=== PATIENT | female | born 1965 | race African-American/Black ===

== ENCOUNTER 2018-10-03 14:16 | Emergency (ER) | payer OTHER ==
[~2018-10-03] VITALS: Ht 172.7 cm; Wt 135.2 kg
[~2018-10-03 14:16] MED LIST: AMITRIPTYLINE H25 M2 PO; AMITRIPTYLINE H25 M3 PO; AMLODIPINE BESY10 MG PO; B-12250 MCG PO; CALCIUM OYSTER500 MG PO; DOXEPIN 25 MG C25 M1 PO; GABAPENTIN100 MG PO; HYDROCHLOROTHIA25 M1 PO; LISINOPRIL10 MG PO; LISINOPRIL40 MG PO; MULTIVITAMINS PO; OXYCODONE HCL15 MG PO; PHENYTEK300 MG PO; RESTORIL30 MG PO; TEGRETOL XR100 MG; TEGRETOL100 MG/5 M PO; VITAMIN D-32000 UNIT PO; ZESTRIL40 MG PO
[2018-10-03] MEDS ORDERED: TRAMADOL 50 MG50 MG PO (14:44)
[2018-10-03 15:21] LABS: ABSOLUTE NEUTROPHILS 6.1 thou/uL (1.4-8.2); BASOPHILS 1.1 % (0.0-2.0); EOSINOPHILS 1.7 % (0.0-3.0); HEMATOCRIT 37.2 % (37.0-47.0); HEMOGLOBIN 12.5 gm/dL (12.0-15.0); LYMPHOCYTES 26.7 % (24.0-44.0); MCH 28.1 pg (26.0-34.0); MCHC 33.5 g/dL (28.0-37.0); MCV 83.8 fL (80.0-100.0); MONOCYTES 7.5 % (1.0-8.0); PLATELET COUNT 381 thou/uL (150-400); RBC 4.44 mil/uL (4.20-5.00); RDW 15.1 % (10.5-14.5); WBC 9.7 thou/uL (4.0-11.0)
[2018-10-03 15:30] LABS: ANION GAP 10 mmol/L (7-16); BUN 23 mg/dL (7-18); CALCIUM 9.8 mg/dL (8.5-10.1); CHLORIDE 97 mmol/L (98-107); CO2 28 mmol/L (21-32); CREATININE 1.1 mg/dL (0.6-1.0); GLUCOSE 99 mg/dL (74-106); POTASSIUM 3.1 mmol/L (3.5-5.1); SODIUM 135 mmol/L (136-145)
[2018-10-03 15:33] LABS: TROPONIN-I <0.06 ng/mL (<0.06)
[2018-10-03] MEDS ORDERED: KLOR-CON 1010 MEQ PO (17:49)
[2018-10-03 17:53] VITALS: BP 148/78
--- NOTE | 2018-10-05 21:48 | EKG ---
[address] [address] ELECTROCARDIOGRAM REPORT Name: VJNANCY DUKE 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: JLАЛЕКСАНДР : 1965 Requested By: Jacques Kidd Order Number: [id number] MD: Helder Luna Measurements Intervals [place] Rate: 109 P: 45 WA: 166 QRS: -1 QRSD: 102 T: -1 QT: 345 QTc: 465 Interpretive Statements Sinus tachycardia Probable left ventricular hypertrophy Compared to ECG 09/19/2018 18:40:04 Sinus rhythm no longer present T-wave abnormality no longer present Electronically Signed On 10-05-2018 21:47:53 ETHANOL QUALITY LEADER by Helder Luna [email or web address] <ELECTRONICALLY SIGNED> By: Helder Luna MD 10/05/18 2147 1441 144 Helder Luna MD /LAURO
== END 2018-10-03 18:03 | disposition home or self-care (01) ==
LOC: ER 14:16
PROVIDERS: Emergency Medicine
DX: R07.89 Other chest pain (principal); E87.6 Hypokalemia; K21.9 Gastro-esophageal reflux disease without esophagitis; I10 Essential (primary) hypertension; F41.9 Anxiety disorder, unspecified; M79.7 Fibromyalgia

== ENCOUNTER 2018-11-11 08:29 | Emergency (ER) | payer OTHER ==
[~2018-11-11] VITALS: Ht 172.7 cm; Wt 134.7 kg
[~2018-11-11 08:29] MED LIST changes: +KLOR-CON 1010 MEQ PO; +TRAMADOL 50 MG50 MG PO
[2018-11-11 08:56] LABS: ABSOLUTE NEUTROPHILS 2.5 thou/uL (1.4-8.2); BASOPHILS 0.4 % (0.0-2.0); EOSINOPHILS 2.3 % (0.0-3.0); LYMPHOCYTES 38.9 % (24.0-44.0); MCH 27.9 pg (26.0-34.0); MCHC 32.4 g/dL (28.0-37.0); MCV 86.1 fL (80.0-100.0); MONOCYTES 8.3 % (1.0-8.0); PLATELET COUNT 250 thou/uL (150-400); POLYS 50.1 % (36.0-66.0); RBC 4.29 mil/uL (4.20-5.00); RDW 16.2 % (10.5-14.5)
[2018-11-11 09:38] LABS: ANION GAP 9 mmol/L (7-16); BUN 18 mg/dL (7-18); CALCIUM 9.6 mg/dL (8.5-10.1); CHLORIDE 103 mmol/L (98-107); CO2 26 mmol/L (21-32); CREATININE 0.8 mg/dL (0.6-1.0); GLUCOSE 89 mg/dL (74-106); POTASSIUM 3.5 mmol/L (3.5-5.1); SODIUM 138 mmol/L (136-145)
[2018-11-11 09:48] LABS: ALBUMIN 3.5 g/dL (3.4-5.0); SGOT 16 U/L (15-37); SGPT 21 U/L (30-65); TOTAL BILIRUBIN 0.2 mg/dL (<0.1-1.0); TOTAL PROTEIN 8.5 g/dL (6.4-8.2); TROPONIN-I <0.06 ng/mL (<0.06)
[2018-11-11] MEDS ORDERED: ACETAMINOPHEN-1 EAC1 PO (09:56)
[2018-11-11] MEDS ORDERED: PREDNISONE 20 M20 MG PO (09:56)
[2018-11-11 10:30] VITALS: BP 138/90
--- NOTE | 2018-11-11 17:14 | EKG ---
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 CHUN : 1965 Requested By: Tony Soliz Order Number: [id number] MD: Helder Luna Measurements Intervals [place] Rate: 80 P: 33 RI: 171 QRS: -4 QRSD: 104 T: -10 QT: 390 QTc: 450 Interpretive Statements Sinus rhythm Left ventricular hypertrophy Borderline T abnormalities, inferior leads Compared to ECG 10/03/2018 14:41:02 T-wave abnormality now present Sinus tachycardia no longer present Electronically Signed On 11-11-2018 17:14:00 SHIFT PRODUCTION SUPERVISOR by Helder Luna [email or web address] <ELECTRONICALLY SIGNED> By: Helder Luna MD 11/11/18 1714 0838 Helder Luna MD /LAURO
== END 2018-11-11 10:49 | disposition home or self-care (01) ==
LOC: ER 08:29
PROVIDERS: Emergency Medicine
DX: M75.22 Bicipital tendinitis, left shoulder (principal); K21.9 Gastro-esophageal reflux disease without esophagitis; I10 Essential (primary) hypertension; F41.9 Anxiety disorder, unspecified; M79.7 Fibromyalgia; Z90.710 Acquired absence of both cervix and uterus; Z98.890 Other specified postprocedural states

== ENCOUNTER 2019-05-27 18:01 | Emergency (ER) | payer OTHER ==
[~2019-05-27] VITALS: Ht 172.7 cm; Wt 135.2 kg
[~2019-05-27 18:01] MED LIST changes: +ACETAMINOPHEN-1 EAC1 PO; +PREDNISONE 20 M20 MG PO
[2019-05-27] MEDS ORDERED: ATIVAN1 MG PO (18:22)
[2019-05-27 18:34] LABS: ABSOLUTE NEUTROPHILS 4.5 thou/uL (1.4-8.2); BASOPHILS 0.7 % (0.0-2.0); EOSINOPHILS 2.4 % (0.0-3.0); HEMATOCRIT 36.6 % (37.0-47.0); HEMOGLOBIN 12.1 gm/dL (12.0-15.0); LYMPHOCYTES 27.8 % (24.0-44.0); MCH 27.4 pg (26.0-34.0); MONOCYTES 8.7 % (1.0-8.0); PLATELET COUNT 352 thou/uL (150-400); POLYS 60.4 % (36.0-66.0); RBC 4.41 mil/uL (4.20-5.00); RDW 15.7 % (10.5-14.5); WBC 7.4 thou/uL (4.0-11.0)
[2019-05-27 18:53] LABS: APTT 27.1 Seconds (24.5-32.8); PROTIME 10.2 Seconds (9.3-11.4)
[2019-05-27 19:06] LABS: ANION GAP 13 mmol/L (7-16); BUN 16 mg/dL (7-18); CALCIUM 9.6 mg/dL (8.5-10.1); CHLORIDE 102 mmol/L (98-107); CO2 25 mmol/L (21-32); GLUCOSE 90 mg/dL (74-106); POTASSIUM 3.6 mmol/L (3.5-5.1); SODIUM 140 mmol/L (136-145)
[2019-05-27 19:16] LABS: ALBUMIN 3.5 g/dL (3.4-5.0); SGOT 18 U/L (15-37); SGPT 20 U/L (30-65); TOTAL BILIRUBIN 0.1 mg/dL (<0.1-1.0); TROPONIN-I <0.06 ng/mL (<0.06)
[2019-05-27] MEDS ORDERED: OMEPRAZOLE20 M2 PO (22:09)
[2019-05-27 22:45] VITALS: BP 150/72
--- NOTE | 2019-05-28 08:36 | EKG ---
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 : 1965 Requested By: Tony Soliz Order Number: [id number] MD: Helder Luna Measurements Intervals [place] Rate: 119 P: 40 WA: 158 QRS: 0 QRSD: 95 T: -14 QT: 324 QTc: 456 Interpretive Statements Sinus tachycardia Left ventricular hypertrophy Borderline T abnormalities, inferior leads Compared to ECG 11/11/2018 08:38:04 Sinus rhythm no longer present T-wave abnormality still present Electronically Signed On 05-28-2019 8:36:30 CDT by Helder Luna [email or web address] <ELECTRONICALLY SIGNED> By: Helder Luna MD 05/28/1936 08 08 Helder Luna MD /LAURO
== END 2019-05-27 22:45 | disposition home or self-care (01) ==
LOC: ER 18:01
PROVIDERS: Emergency Medicine
DX: R07.9 Chest pain, unspecified (principal); R10.13 Epigastric pain; I10 Essential (primary) hypertension; K21.9 Gastro-esophageal reflux disease without esophagitis; F41.9 Anxiety disorder, unspecified; M79.7 Fibromyalgia; E66.01 Morbid (severe) obesity due to excess calories; Z90.710 Acquired absence of both cervix and uterus; Z90.49 Acquired absence of other specified parts of digestive tract; Z68.42 Body mass index [BMI] 45.0-49.9, adult; Z88.6 Allergy status to analgesic agent

== ENCOUNTER 2019-10-15 11:19 | Emergency (ER) | payer OTHER ==
[~2019-10-15] VITALS: Ht 172.7 cm; Wt 89.8 kg
[~2019-10-15 11:19] MED LIST changes: +ATIVAN1 MG PO; +OMEPRAZOLE20 M2 PO
[2019-10-15 12:13] LABS: BASOPHILS 1.7 % (0.0-2.0); HEMATOCRIT 36.6 % (37.0-47.0); HEMOGLOBIN 11.7 gm/dL (12.0-15.0); LYMPHOCYTES 27.7 % (24.0-44.0); MCH 26.8 pg (26.0-34.0); MCV 83.7 fL (80.0-100.0); MONOCYTES 11.2 % (1.0-8.0); PLATELET COUNT 376 thou/uL (150-400); POLYS 56.4 % (36.0-66.0); RBC 4.37 mil/uL (4.20-5.00); RDW 15.6 % (10.5-14.5); WBC 5.3 thou/uL (4.0-11.0)
[2019-10-15 12:24] LABS: ANION GAP 9 mmol/L (7-16); BUN 18 mg/dL (7-18); CALCIUM 9.9 mg/dL (8.5-10.1); CHLORIDE 101 mmol/L (98-107); CO2 28 mmol/L (21-32); GLUCOSE 118 mg/dL (74-106); POTASSIUM 3.6 mmol/L (3.5-5.1); SODIUM 138 mmol/L (136-145)
[2019-10-15 12:32] LABS: TROPONIN-I <0.06 ng/mL (<0.06)
[2019-10-15 14:16] VITALS: BP 176/98
--- NOTE | 2019-10-15 17:27 | EKG ---
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: [facility] : 1965 Requested By: Allen Ventura Order Number: [id number] MD: Helder Luna Measurements Intervals [place] Rate: 100 P: 41 [place]: 156 QRS: -9 QRSD: 100 T: 4 QT: 368 QTc: 475 Interpretive Statements Sinus tachycardia Left ventricular hypertrophy Compared to ECG 05/27/2019 18:09:38 T-wave abnormality no longer present Electronically Signed On 10-15-2019 17:27:08 NIGHT CLUB MANAGER by Helder Luna [email or web address] <ELECTRONICALLY SIGNED> By: Helder Luna MD 10/15/19 1727 D: [id number] Helder Luna MD /LAURO
== END 2019-10-15 14:17 | disposition home or self-care (01) ==
LOC: ER 11:19
PROVIDERS: Emergency Medicine
DX: R06.02 Shortness of breath (principal); K21.9 Gastro-esophageal reflux disease without esophagitis; I10 Essential (primary) hypertension; F41.9 Anxiety disorder, unspecified; M79.7 Fibromyalgia; Z90.710 Acquired absence of both cervix and uterus; Z98.84 Bariatric surgery status; Z90.89 Acquired absence of other organs; Z98.890 Other specified postprocedural states; Z88.5 Allergy status to narcotic agent

== ENCOUNTER → 2021-03-01 | Outpatient (CLI) | payer OTHER ==
[~2021-03-01] VITALS: Ht 172.7 cm; Wt 121.1 kg
[~2021-03-01] MED LIST changes: +ALPRAZOLAM ER1 MG PO; +DOXYCYCLINE HYC20 MG PO; +NEURONTIN100 MG PO; +SLEEP AID50 MG PO; +VITAMIN D325 MC5 PO
--- NOTE | 2021-03-03 18:06 | PATH ---
[facility] [place] [address] PATHOLOGY RPT PROCEDURE Name: KAREN VALLADARES Room #: REG [facility] MDami.#: [id number] Admission: 03/01/21 Date of : 65 Discharge: Report #: [id number] Path Case #: [id number] [facility] Accession Number: [id number] . 01 Material submitted: . PART A: duodenum - DUODENAL BIOPSY PART B: gastrointestinal site - GASTRIC BIOPSY . 01 Clinical history: . DTS/EGD/GERD DIARRHEA,BLOATING ULCER AT SURGICAL ANASTOMOSIS FOR A- R/O SPRUE . 02 Diagnosis: A. Small bowel mucosa, duodenum, endoscopic biopsy: - No significant abnormalities present. - Negative for villous blunting or increase in intraepithelial lymphocytes. . B. Gastric mucosa, gastric to rule out H. pylori, endoscopic biopsy: - Mild chronic gastritis. - Negative for intestinal metaplasia or atrophy. - Negative for Helicobacter pylori (properly controlled immunohistochemical stain performed). . 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 02 Electronically signed: . Eloisa Corona MD, Pathologist NPI- [id number] . 01 Gross description: . A. The specimen is received in formalin, labeled "Karen Valladares, duodenal biopsy rule out sprue" received as multiple fragments of soft villalpando tissue measuring up to 0.6 cm. Entirely submitted in A1. . B. The specimen is received in formalin, labeled "Karen Valladares, gastric biopsy rule out H. pylori" received as multiple fragments of soft villalpando tissue measuring up to 0.6 cm. Entirely submitted in B1. ([facility]; 03/02/2021) LORNA/LORNA 03/03/2021 1322 Local . 02 Pathologist provided ICD-10: K29.50, R19.7, R14.0 . 02 [place] [address] PATHOLOGY RPT PROCEDURE Name: KAREN VALLADARES Room #: REG [facility]#: [id number] Admission: 03/01/21 Date of : 65 Discharge: Report #: [id number] Path Case #: [id number] CPT . 599304, 119774, [id number] Specimen Comment: A courtesy copy of this report has been sent to [phone] Specimen Comment: [phone] Specimen Comment: Report sent to / DR ENRIQUEZ Performed at: [address], [place], [place] [id number] MD Yuri Olsen MD Phone: [phone] Performed at: [address] [place] [address] [id number] MD Eloisa Corona MD Phone: [phone]
--- NOTE | 2021-03-06 15:04 | P ---
[facility] [place] [address] [place] [address] PROCEDURE REPORT Name: NANCY ZABALA [facility] [id number] Admission: 03/01/21 Attend Phys: Marko Barney Discharge: Date of : 65 Report #: [id number] THIS REPORT FOR: cc: Ana Torres MD, Genelle J. MD McElhinney, Christian C. MD ~ DOC #: [id number] cc: Dr. Ana Stokes MD DATE OF SERVICE: 03/01/2021 PROCEDURE PERFORMED: Upper endoscopy with biopsies. HISTORY OF PRESENT ILLNESS: The patient is a 55-year-old female with complaints of abdominal pain, intermittent nausea and vomiting. She does have a history of heartburn and takes Prilosec over the counter on a daily basis for the last year, which is somewhat helpful. She denies any dysphagia. She has had weight loss of approximately 50 pounds over the last 6 months. She underwent an ultrasound of the abdomen and PIPIDA scan, which was reportedly negative last fall. Last colonoscopy was 30 years ago. She does report chronic diarrhea as well as narrowing of her stools. No family history of colon cancer. She also reports dark stools at times. She does take Aleve on a fairly regular basis. She apparently has had a gastric Lisbet-en-Y bypass surgery for weight loss years ago. DESCRIPTION OF PROCEDURE: The risks and benefits of the procedure were explained to the patient, those risks including but not limited to bleeding, perforation and the risk of sedation. She understood these risks and gave informed consent. Sedation was given using propofol per anesthesia. Next, using a standard Olympus upper endoscope, the scope was placed in the patient's mouth and advanced under direct vision through the esophagus, the remaining stomach and into the jejunum. The esophagus was normal throughout. The GE junction was normal. Surgical changes of previous gastric bypass were noted. The stomach was small in size, but normal mucosa. Biopsies were obtained to rule out H. pylori. The surgical anastomosis was patent; however, there was a marginal ulcer of approximately 1.5 cm. There was no evidence of active bleeding right at the anastomotic site. The scope was advanced well into the jejunum. No abnormalities were noted in the jejunum. Random biopsies were obtained to rule out H. pylori. The scope was then withdrawn and the procedure terminated. The patient tolerated the procedure well. IMPRESSION: 1. Surgical changes noted of gastric bypass. 2. Marginal anastomotic ulcer noted. No active bleeding, but could be etiology of abdominal pain and symptoms. [address] [address] PROCEDURE REPORT Name: NANCY ZABALA Room #: REG Nelia Andrade#: [id number] Admission: 03/01/21 Attend Phys: Marko Barney Discharge: Date of : 65 Report #: [id number] RECOMMENDATIONS: 1. Await biopsy results. 2. We will increase Prilosec to b.i.d. and add Carafate at this time. 3. The patient needs a colonoscopy because of her diarrhea and narrowing of stools, may need to consider a CT scan of the abdomen and pelvis for weight loss if this does not improve. Thank you for allowing me to participate in her care. Marko Stokes MD CCM/DARRELK <ELECTRONICALLY SIGNED> By: Marko Stokes MD 03/06/21 1504 1017 06 Marko Stokes MD /nt
== END | disposition home or self-care (01) ==
LOC: GI 09:03
PROVIDERS: ATTEND Specialist
DX: R10.9 Unspecified abdominal pain (principal); R11.2 Nausea with vomiting, unspecified; K29.50 Unspecified chronic gastritis without bleeding; R19.7 Diarrhea, unspecified; R14.0 Abdominal distension (gaseous); I10 Essential (primary) hypertension; F41.9 Anxiety disorder, unspecified; K21.9 Gastro-esophageal reflux disease without esophagitis; M79.7 Fibromyalgia; G47.00 Insomnia, unspecified; E66.01 Morbid (severe) obesity due to excess calories; Z98.890 Other specified postprocedural states; Z79.899 Other long term (current) drug therapy; Z90.710 Acquired absence of both cervix and uterus; Z68.41 Body mass index [BMI] 40.0-44.9, adult; Z88.8 Allergy status to other drugs, medicaments and biological substances
CPT/HCPCS: 62110; 62900

== ENCOUNTER → 2021-06-07 | Outpatient (CLI) | payer OTHER | LOC: LAB 07:55 | PROVIDERS: ATTEND Student in an Organized Health Care Education/Training Program | DX: U07.1 COVID-19 (principal); Z01.812 Encounter for preprocedural laboratory examination ==

== ENCOUNTER → 2021-06-09 | Outpatient (CLI) | payer OTHER ==
[~2021-06-09] VITALS: Ht 172.7 cm; Wt 117.0 kg
--- NOTE | ~2021-06-09 | P ---
[facility] [place] [address] [address] [place] [address] PROCEDURE REPORT Name: NANCY ZABALA [facility] #: [facility] [id number] Admission: 06/09/21 Attend Phys: Marko Barney Discharge: Date of : 65 Report #: [id number] THIS REPORT FOR: cc: Ana Torres MD, Genelle J. MD McElhinney, Christian C. MD ~ cc: Ana Torres DATE OF SERVICE: 06/09/2021 PROCEDURE PERFORMED: Colonoscopy with biopsies. HISTORY OF PRESENT ILLNESS: The patient is a 55-year-old female who underwent an upper endoscopy by myself on 03/01/2021 for abdominal pain. She was noted to have a marginal ulcer near her Lisbet-en-Y gastric bypass anastomosis, recommended b.i.d. PPI therapy at that time. She continues to have abdominal pain, but has been off her PPI therapy. She presents today for screening colonoscopy. She does report loose stools at times. No family history of colon cancer. DESCRIPTION OF PROCEDURE: The risks and benefits of the procedure were explained to the patient, those risks including but not limited to bleeding, perforation and the risk of sedation. She understood these risks and gave informed consent. Sedation was given using propofol per anesthesia. Next, a digital rectal exam was initially performed, which was normal. Next, using a standard Olympus colonoscope, the scope was placed in the patient's anus and advanced under direct vision to the cecum. The overall prep was excellent. The cecum and ileocecal valve are normal in appearance. Ascending, transverse, descending and sigmoid colon were normal. Random biopsies were obtained today to rule out the possibility of microscopic colitis. A small 3 mm sessile polyp was noted in the rectum. This was removed with cold forceps. On retroflexion, small nonbleeding internal hemorrhoids were noted. The scope was then withdrawn and the procedure terminated. The patient tolerated the procedure well. IMPRESSION: 1. Small internal hemorrhoids. 2. Small colonic polyp. 3. Otherwise, normal colonoscopy. RECOMMENDATIONS: 1. Await biopsy results. 2. If polyp is hyperplastic, repeat in 10 years; if adenomatous polyp, repeat in 5 years. 3. Advised the patient to restart PPI therapy. A script was given today. [address] [address] PROCEDURE REPORT Name: NANCY ZABALA Room #: REG SARAI Andrade#: [id number] Admission: 06/09/21 Attend Phys: Marko Barney Discharge: Date of : 65 Report #: [id number] Thank you for allowing me to participate in her care. By: 0921 3747 Marko Stokes MD /nt
--- NOTE | 2021-06-12 18:06 | PATH ---
[facility] [address] [place] [address] PATHOLOGY RPT PROCEDURE Name: KAREN VALLADARES Room #: REG Nelia Carrera.#: [id number] Admission: 06/09/21 Date of : 65 Discharge: Report #: [id number] Path Case #: [id number] [facility] Accession Number: [id number] . 01 Material submitted: . PART A: colon - RANDOM COLON BIOPSY RULE OUT MICROSCOPIC COLITIS. Modifiers: RANDOM PART B: rectum - RECTAL POLYP . 01 Clinical history: . DTS/COLONOSCOPY /SCREENING COLON CA RECTAL POLYP . 02 Diagnosis: A. Large intestinal mucosa, random colon, endoscopic biopsy: - Mild active colitis present in all fragments sampled. - Negative for dysplasia or malignancy. . B. Polyp, rectal polyp, endoscopic biopsy: - Polypoid inflamed mucosa with mild active colitis and hyperplastic changes. - Negative for dysplasia or malignancy. . (IUV:mml; 06/12/2021) QLM 06/12/2021 1708 Local . 02 Comment: Sections of the colonic mucosa designated "random colon and rectal polyp" show focal cryptitis, and a moderately cellular lamina propria composed predominantly of lymphocytes and plasma cells and occasional eosinophils. Surface ulceration is not identified. There are no crypt abscesses, granulomas or viral inclusions. The process affects all the fragments with a similar intensity. Given the description, the differential diagnosis includes mild active colitis of either focal self-limited etiology, early inflammatory bowel disease, acute diverticulitis, medication/drug-induced colitis amongst other possibilities. Please correlate with clinical as well as endoscopic findings. . (IUV:mml; 06/12/2021) . 02 Electronically signed: . Eloisa Corona MD, Pathologist NPI- [id number] . 01 Gross description: . A. Received in formalin labeled "Karen Valladares, random colon biopsy rule out microscopic colitis" are multiple fragments of villalpando-brown [address] [address] PATHOLOGY RPT PROCEDURE Name: KAREN VALLADARESISE Room #: REG [facility]#: [id number] Admission: 06/09/21 Date of : 65 Discharge: Report #: [id number] Path Case #: [id number] tissue measuring in aggregate 1.4 x 0.4 x 0.3 cm. The specimen is submitted entirely in A1. . B. Received in formalin labeled "Karen Valladares rectal polyp" is a fragment of villalpando-brown soft tissue measuring 0.6 x 0.4 x 0.3 cm. The specimen is submitted entirely in B1. ([facility]; 06/10/2021) GZA/GZA 06/10/2021 1117 Local . 02 Pathologist provided ICD-10: K52.9, K62.89 . 02 CPT . 316438, 082569 Specimen Comment: A courtesy copy of this report has been sent to [phone] Specimen Comment: Report sent to DR. ENRIQUEZ Performed at: [address], [place] [id number] MD Yuri Olsen MD Phone: [phone] Performed at: [address] [id number] MD Eloisa Corona MD Phone: [phone]
== END | disposition home or self-care (01) ==
LOC: GI 07:39
PROVIDERS: ATTEND Specialist
DX: R10.9 Unspecified abdominal pain (principal); K62.1 Rectal polyp; K52.9 Noninfective gastroenteritis and colitis, unspecified; K62.89 Other specified diseases of anus and rectum; K64.8 Other hemorrhoids; I10 Essential (primary) hypertension; F41.9 Anxiety disorder, unspecified; K21.9 Gastro-esophageal reflux disease without esophagitis; M79.7 Fibromyalgia; Z98.890 Other specified postprocedural states; Z79.899 Other long term (current) drug therapy; Z90.710 Acquired absence of both cervix and uterus; Z98.84 Bariatric surgery status; Z88.8 Allergy status to other drugs, medicaments and biological substances
CPT/HCPCS: 62110; 62900